=== PATIENT | male | born 1990 | race Caucasian/White ===

== ENCOUNTER 2019-03-10 15:09 | Outpatient (CLI) | payer MEDICAID ==
[2019-03-10 15:41] LABS: ALBUMIN 4.6 g/dL (3.2-5.5); ALBUMIN/GLOBULIN RATIO 1.4 (1.0-2.2); BILIRUBIN,TOTAL 1.1 mg/dL (0.2-1.0); CALCIUM 9.4 mg/dL (8.5-10.3); CREATININE 0.9 mg/dL (0.6-1.2); TOTAL PROTEIN 7.8 g/dL (6.7-8.2)
[2019-03-10 15:54] LABS: BASOPHILS % (AUTO) 0.5 %; EOSINOPHILS # (AUTO) 0.1 10^3/uL (0.0-0.7); EOSINOPHILS % (AUTO) 1.6 %; HGB - HEMOGLOBIN 13.8 g/dL (14.0-18.0); LYMPHOCYTES # (AUTO) 1.8 10^3/uL (1.5-3.5); LYMPHOCYTES % (AUTO) 23.4 %; MEAN CORPUSCULAR HEMOGLOBIN 27.4 pg (27.0-31.0); MEAN CORPUSCULAR HGB CONC 33.5 g/dL (32.0-36.0); MEAN CORPUSCULAR VOLUME 81.7 fL (80.0-94.0); MEAN PLATELET VOLUME 11.1 fL (7.4-11.4); MONOCYTES # (AUTO) 0.5 10^3/uL (0.0-1.0); MONOCYTES % (AUTO) 7.2 %; NEUTROPHILS # (AUTO) 5.1 10^3/uL (1.5-6.6); NEUTROPHILS % (AUTO) 66.9 %; PLT - PLATELET COUNT 276 10^3/uL (130-450); RED BLOOD COUNT 5.04 10^6/uL (4.70-6.10); RED CELL DISTRIBUTION WIDTH 13.8 % (12.0-15.0); WHITE BLOOD COUNT 7.6 x10^3/uL (4.8-10.8)
[2019-03-10 16:22] LABS: THYROID STIMULATING HORMONE 1.89 uIU/mL (0.34-5.60)
[2019-03-10 16:26] LABS: FREE T4 (FREE THYROXINE) 0.78 ng/dL (0.58-1.64)
--- NOTE | 2019-03-11 17:51 | XRAY Report ---
Reason: LEG WEAKNESS, LEFT Procedure Date: 03/10/2019 Accession Number: [id number] / [id number] Procedure: XR - Lumbar Spine Complete CPT Code: Final Report FULL RESULT: EXAM: LUMBOSACRAL SPINE RADIOGRAPHY EXAM DATE: 03/10/2019 03:21 PM. CLINICAL HISTORY: Left leg weakness for 3 months. COMPARISONS: None. TECHNIQUE: 5 views including obliques. FINDINGS: Alignment: No scoliosis. Minimal anterolisthesis at L5-S1. Bones: Five [id number] lumbar vertebral bodies are present. No traumatic or destructive bony abnormalities. Left pars defects at L5. Disks: Normal. Disk heights are maintained. Facets: Facet arthropathy on the left at L4-L5 and bilaterally at L5-S1. Sacroiliac Joints: Unremarkable. Soft Tissues: Normal. The visualized bowel gas pattern is normal. IMPRESSION: Left pars defect at L5 with minimal anterolisthesis at L5-S1. RADIA
== END 2019-03-10 15:10 | disposition home or self-care (01) ==
LOC: LAB 15:09
PROVIDERS: ATTEND Family Medicine
DX: E66.9 Obesity, unspecified (principal); R29.2 Abnormal reflex; G83.10 Monoplegia of lower limb affecting unspecified side
CPT/HCPCS: 36415; 72110; 80053; 84439; 84443; 84481; 85025

== ENCOUNTER 2020-05-10 20:04 | Outpatient (CLI) | payer MEDICAID | END 2020-05-10 20:05 | disposition home or self-care (01) | LOC: COV 20:04 | PROVIDERS: ATTEND Family Medicine | DX: R53.83 Other fatigue (principal); R07.0 Pain in throat; Z20.822 Contact with and (suspected) exposure to COVID-19 ==

== ENCOUNTER 2020-07-02 13:54 | Outpatient (CLI) | payer MEDICAID ==
[2020-07-08 21:43] VITALS: BP 88/44
--- NOTE | 2020-07-08 21:43 | SLEEP CARE CONSULTATION ---
Information from patient questionnaire entered by Be Cartagena. I have reviewed and concur with the information entered by Be Cartagena. This document represents the service I personally performed and the decisions made by me, Juliet Martinez MD, [facility]. History of Present Illness Service Date and Time: 07/02/2020 1354 Reason for Visit: New patient Chief Complaint: reports: Snoring, Fatigue, Other (Referral based on insomnia, snoring, fatigue) Date of Onset: Lifetime issues with regulating sleep, some are newer Usual bedtime: No usual Time it takes to fall asleep: Varies Snores at night: Yes Sleeps alone due to snoring: No Number of times waking at night: If wake usually awake for day, occasionally deep a couple more hours Reasons for waking at night: reports: Choking (occasional), Bathroom Toss, Turn, or Twitch while sleeping: No (Unknown) Recalls having dreams: Yes (Rarely) Usually gets out of bed at: Varied Feels refreshed in the morning: No Morning headache: No Sleepy or fatigued during the day: Yes Ever fallen asleep while driving: No (Doesn't drive) Takes day naps: No Dreams during day naps: No Prior sleep studies: No Additional HPI information: I had the pleasure of seeing Mr. Hampton along with his mother today regarding the possibility of him having a sleep disorder. As you know, he is a 30 year old gentleman who complains of fatigue. He was recommended by therapists at [facility] to have a sleep study. The patient has irregular sleep-wake pattern. He reports sleeping anywhere from 4 to 14 hours a day. He snores, according to his mother. She has never seen him quit breathing. Once he is asleep, he usually does not wake up during the night. - Parasomnia Symptoms Ever been unable to move upon waking from sleep: Yes (Once, years ago) Ever felt weak in the knees when startled or emotional: No Bothered by creepy, crawly, restless sensations in legs: No Problems with memory or concentration: Yes Subjective Initial [place] Sleepiness Scale score: 7 (in 2020) Past Medical History Past Medical History: reports: Anxiety, Mood disorder, Attention deficit, Other (MS) Social History The patient's occupation is unemployed. Patient is Single and lives in [place]. Have you smoked in the past 12 months: No Alcohol use: Yes Alcohol amount and frequency: Rare Caffeine use: Yes Caffeine amount and frequency: Iced tea - 32-48 oz Family History Family history of sleep disordered breathing: No Allergies and Home Medications Drug allergies reviewed: Yes Home medication list reviewed: Yes Review of Systems Weight gain over past 5 years: 10 +/- Cardiovascular: reports: leg or foot swelling (Past) Respiratory: reports: shortness of breath, wheeze, sputum production, chronic cough Gastrointestinal: reports: heartburn, difficulty swallowing Urinary: denies: incontinence, frequency, urgency, impotence, other Neurological: reports: head trauma (younger), speech dysfunction, gait or balance problems, other (memory retention) Psychiatric: reports: Attention Deficit Hyperactivity, anxiety, depression, mood disorder, other (Autism, IED) Ear/Nose/Throat: reports: nasal congestion, sinus problems, dry mouth/throat, hoarseness Endocrine: reports: sluggishness (tired), too hot or cold Musculoskeletal: reports: joint pain (stiffness), neck pain, back pain, mobility problems Immunologic: reports: allergies to food or environment (Bee stings) Physical Exam Vital signs obtained and entered by: Dr. Martinez Blood Pressure: 88/44 Cuff size: regular Heart Rate: 96 O2 Saturation: 95 Height: 6 ft 1 in Weight: 309 lb Body Mass Index: 40.7 BMI Classification: Morbidly Obese Neck circumference: 18.5 HEENT: No craniofacial malformation Nostrils: patent to airflow Turbinates: normal Septum: midline Mouth and throat: narrow oropharynx Soft palate: long Hard palate: normal Uvula: normal Uvula visualization: 25% Mallampati Class III Tongue: normal in size Tonsils: small Chin and jaw: normal size and position Neck: normal w/o lymphadenopathy or thyromegaly Heart: regular rate and rhythm Lungs: clear bilaterally Extremities: no edema or clubbing Impression and Plan IMPRESSION: 1. Obstructive Sleep Apnea-Hypopnea Syndrome, as suggested by history of loud and irregular snoring, observed cessation of breath while asleep, unrefreshed sleep, cognitive impairment, and daytime hypersomnolence. Narrow oropharynx and obesity are common predisposing factors for obstructive sleep apnea-hypopnea syndrome. I recommend proceeding with either an in-labora tory polysomnography or a home sleep apnea test (HSAT). The patient does not think he will be able to tolerate anything on his head and chooses the home sleep apnea test (HSAT). Plan: 1. Schedule a home sleep apnea test (HSAT). 2. Try to lose weight. 3. Return for follow up after the test. Counseling Topics: Weight control Visit Type: In Office Time Spent with Patient (minutes): 15 Provider Statement: I spent 100% of the Face to Face Visit with the patient with greater than 50% spent counseling the patient and coordination of care.
--- OUTSIDE RECORDS SUMMARY | 2020-07-10 21:37 | EXTERNAL MEDICAL SUMMARY RPT | Continuity of Care Document ---
:1990 Demographics Phone Unavailable Preferred Language [place] Marital Status Unknown Episcopal Affiliation Unknown Race Unknown Ethnic Group Unknown Author Organization [facility] Address [address] [phone] Phone Social History date description facility [phone]
== END 2020-07-02 13:55 | disposition home or self-care (01) ==
LOC: SC 13:54
PROVIDERS: ATTEND Internal Medicine Pulmonary Disease
DX: G47.10 Hypersomnia, unspecified (principal); R06.81 Apnea, not elsewhere classified; R06.83 Snoring; R41.89 Other symptoms and signs involving cognitive functions and awareness; G47.8 Other sleep disorders; E66.01 Morbid (severe) obesity due to excess calories; Z68.41 Body mass index [BMI] 40.0-44.9, adult
CPT/HCPCS: 99202; 99212

== ENCOUNTER 2020-07-18 14:38 | Outpatient (CLI) | payer MEDICAID | END 2020-07-18 14:39 | disposition home or self-care (01) | LOC: SC 14:38 | PROVIDERS: ATTEND Internal Medicine Pulmonary Disease | DX: G47.33 Obstructive sleep apnea (adult) (pediatric) (principal); R09.02 Hypoxemia; E66.9 Obesity, unspecified; Z68.41 Body mass index [BMI] 40.0-44.9, adult | CPT/HCPCS: 95806 ==

== ENCOUNTER 2020-08-27 12:52 | Outpatient (CLI) | payer MEDICAID ==
--- NOTE | 2020-08-27 14:14 | SLEEP CARE CONSULTATION ---
Information from patient questionnaire entered by Nina Pfeiffer. I have reviewed and concur with the information entered by Nina Pfeifefr. This document represents the service I personally performed and the decisions made by me, Juliet Martinez MD, [facility]. History of Present Illness Service Date and Time: 08/27/2020 1252 Initial [place] Sleepiness Scale score: 7 (in 2020) Current [place] Sleepiness Scale score: 6 Additional HPI information: HPI: Mr. Hampton returned with his mother for a follow up of the sleep study he had on 07/19/2020. The test showed Obstructive Sleep Apnea-Hypopnea, mild, with an AHI of 5.5/hr and jacquie SaO2 of 86%. During the study, the patient had 28 apneas (27 obstructive, 1 central, 0 mixed) and 14 hypopneas. The longest episode lasted 68.0 seconds. The patient did not sleep supine during this study. The patient was informed of these findings. I explained to him the pathophysiology behind obstructive sleep apnea. We then spent quite a bit of time discussing different treatment options. For mild obstructive sleep apnea, surgery and oral appliance are alternatives to nasal CPAP therapy but in moderate or severe cases, nasal CPAP is the most effective and reliable treatment. Weight loss in an obese individual is strongly recommended. After some discussion, he opted to lose weight. He absolutely does not want to try CPAP. Sleep Study - Results Type of Sleep Study: Home sleep study Allergies and Home Medications Drug allergies reviewed: Yes Home medication list reviewed: Yes Review of Systems Review of systems same as previous: Yes Physical Exam Height: 6 ft 1 in Weight: 308 lb Body Mass Index: 40.6 BMI Classification: Morbidly Obese Impression and Plan IMPRESSION: 1. Obstructive Sleep Apnea-Hypopnea Syndrome, mild, associated with mild hypoxemia. This may contribute to his complaint of tiredness. The patient does not wish to undergo treatment besides trying to lose weight. He said he has lost 7 lbs and was very unhappy that he is only 1 lb different from his last visit on our scale. Leaving very mild obstructive sleep apnea untreated is reasonable. PLAN: 1. Try lose weight. 2. His mother will watch to see if his daytime symptoms get worse. 3. Return for a follow up on as needed basis. Follow up recommended for: Weight management Visit Type: In Office Other Participants: Other (mother) Time Spent with Patient (minutes): 15 Provider Statement: I spent 100% of the Face to Face Visit with the patient with greater than 50% spent counseling the patient and coordination of care.
== END 2020-08-27 12:53 | disposition home or self-care (01) ==
LOC: SC 12:52
PROVIDERS: ATTEND Internal Medicine Pulmonary Disease
DX: G47.33 Obstructive sleep apnea (adult) (pediatric) (principal); E66.01 Morbid (severe) obesity due to excess calories; Z68.41 Body mass index [BMI] 40.0-44.9, adult
CPT/HCPCS: 99212